=== PATIENT | female | born 1980 | race American Indian/Alaskan Native ===

== ENCOUNTER 2016-03-16 10:44 | Emergency (ER) | payer OTHER ==
[2016-03-16 10:54] VITALS: BP 136/92
[2016-03-16 11:55] LABS: Basophils % (Auto) 0.4 % (0.0-1.8); Eosinophils % (Auto) 1.4 % (0.0-4.3); Hematocrit 39.3 % (30.3-42.9); Hemoglobin 13.2 gm/dl (10.1-14.3); Mean Corpuscular HGB Conc 34 % (30-34); Mean Corpuscular Hemoglobin 32 pg (28-32); Mean Corpuscular Volume 94 fl (79-97); Platelet Count 248 K/mm3 (140-440); Red Blood Count 4.17 M/mm3 (3.65-5.03); Red Cell Distribution Width 13.4 % (13.2-15.2)
[2016-03-16 11:57] LABS: Bacteria,Urine 2+ /HPF (Negative); Bilirubin,Urine NEG (Negative); Blood,Urine NEG (Negative); Ketones,Urine NEG (Negative); Leukocyte Esterase,Urine NEG (Negative); Mucus,Urine FEW /HPF; Nitrite,Urine NEG (Negative); Protein,Urine <15 mg/dL mg/dL (Negative); Urobilinogen,Urine < 2.0 mg/dL (<2.0)
[2016-03-16 12:14] LABS: Alanine Aminotransferase 15 units/L (7-56); Albumin 4.2 g/dL (3.9-5); Albumin/Globulin Ratio 1.5 %; Alkaline Phosphatase 40 units/L (35-129); Anion Gap 19 mmol/L; BUN/Creatinine Ratio 8.75; Bilirubin,Total 0.2 mg/dL (0.1-1.2); Blood Urea Nitrogen 7 mg/dL (7-17); Calcium 9.2 mg/dL (8.4-10.2); Carbon Dioxide 24 mmol/L (22-30); Chloride 105.5 mmol/L (98-107); Glucose 85 mg/dL (65-100); Lipase 26 units/L (13-60); Sodium 144 mmol/L (137-145)
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
--- NOTE | 2016-03-17 18:14 | ED Elopement Review ---
ED Pt Elopement review - Results review Lab results: Laboratory Tests 03/16/16 03/16/16 03/16/16 11:35 11:37 11:37 WBC 7.0 RBC 4.17 Hgb 13.2 Hct 39.3 MCV 94 MCH 32 MCHC 34 RDW 13.4 Plt Count 248 Lymph % (Auto) 22.1 [place] % (Auto) 7.6 H Eos % (Auto) 1.4 Baso % (Auto) 0.4 Lymph # 1.6 [place]ett # 0.5 Eos # 0.1 Baso # 0.0 Seg Neutrophils % 68.5 Seg Neutrophils # 4.8 Sodium 144 Potassium 4.0 Chloride 105.5 Carbon Dioxide 24 Anion Gap 19 BUN 7 Creatinine 0.8 Estimated GFR > 60 BUN/Creatinine Ratio 8.75 Glucose 85 Calcium 9.2 Total Bilirubin 0.2 AST 17 ALT 15 Alkaline Phosphatase 40 Total Protein 7.0 Albumin 4.2 Albumin/Globulin Ratio 1.5 Lipase 26 HCG, Quant Urine Color [place] Urine Turbidity Turbid Urine pH 7.0 Ur Specific [place] 1.019 Urine Protein <15 mg/dl Urine Glucose (UA) Neg Urine Ketones Neg Urine Blood Neg Urine Nitrite Neg Urine Bilirubin Neg Urine Urobilinogen < 2.0 Ur Leukocyte Esterase Neg Urine WBC (Auto) 1.0 Urine RBC (Auto) 3.0 Urine Bacteria (Auto) 2+ Amorphous Crystals 1+ Urine Mucus Few 03/16/16 11:37 WBC RBC Hgb Hct MCV MCH MCHC RDW Plt Count Lymph % (Auto) [place] % (Auto) Eos % (Auto) Baso % (Auto) Lymph # [place] # Eos # Baso # Seg Neutrophils % Seg Neutrophils # Sodium Potassium Chloride Carbon Dioxide Anion Gap BUN Creatinine Estimated GFR BUN/Creatinine Ratio Glucose Calcium Total Bilirubin AST ALT Alkaline Phosphatase Total Protein Albumin Albumin/Globulin Ratio Lipase HCG, Quant [id number] H Urine Color Urine Turbidity Urine pH Ur Specific [place] Urine Protein Urine Glucose (UA) Urine Ketones Urine Blood Urine Nitrite Urine Bilirubin Urine Urobilinogen Ur Leukocyte Esterase Urine WBC (Auto) Urine RBC (Auto) Urine Bacteria (Auto) Amorphous Crystals Urine Mucus - Call Back decision Pt Call Back Decision: No action required
== END 2016-03-16 20:00 | disposition left against medical advice (07) ==
LOC: ED 10:44
DX: O9A.211 Injury, poisoning and certain other consequences of external causes complicating pregnancy, first trimester (principal); Z3A.13 13 weeks gestation of pregnancy; V49.49XA Driver injured in collision with other motor vehicles in traffic accident, initial encounter; Y93.9 Activity, unspecified; Y92.9 Unspecified place or not applicable; Y99.9 Unspecified external cause status
CPT/HCPCS: 36415; 76801; 76817; 80053; 81001; 83690; 84702; 85025